=== PATIENT | female | born 1995 | race Caucasian/White ===

== ENCOUNTER 2017-05-18 15:17 | Emergency (ER) | payer BC ==
[2017-05-18 15:47] VITALS: BP 108/65
--- NOTE | 2017-05-18 16:32 | UC ---
Headache HPI - HPI Summary HPI Summary: 22 female presents to with complaints of sudden onset headache, right sided facial numbness, right sided arm pins and needles and blurred vision that began around 1:30pm while in class. States she went back to her dorm and symptoms subsided other than the headache after 15 minutes. Patient denies ever having any symptoms similar to this in the past. She does admit to having history of migraines, is not medicated for. Has been seen by neurology years ago. Took an excedrin around 2:00pm without much relief. Denies nausea, vomiting, recent illness, drooping of face, trouble speaking, weakness, recent trauma or injury. No other complaints at this time. Only symptom she has currently is headache. which she describes as intermittent sharp pain, left occipital region. Is photophobic with some dizziness. Denies nausea/vomiting, weakness, chest pain, difficulty breathing. Is taking OCP and has been for the past 2 years. Denies any recent long distance travel, use of cigarettes and prolonged bed rest. Is otherwise active and healthy. No other known PMHx or medications. - History Of Current Complaint Chief Complaint: [facility] Stated Complaint: HEADACHE/BLURRY VISION/DIZZY Time Seen by Provider: 05/18/17 15:51 Hx Obtained From: Patient Hx Last Menstrual Period: 05/08/17 Onset/Duration: Sudden Onset, Lasting Minutes, Still Present - headache Onset Of Symptoms: Sudden, Resolved - besides headache which is still present Initially Headache Was: Initial Pain Scale(0-10)= - 9 Currently Pain Is: Current Pain Scale(0-10)= - 7 Pain Intensity: 7 Pain Scale Used: 0-10 Numeric Timing: Minutes Character: Sharp - intermittent Location of Headache: Occipital - left side Aggravating Factor: Bright Lights Allevating Factors: Nothing - spontaneous resolution of neuro symptoms Associated Signs And Symptoms: Positive: Dizziness, Visual Changes - blurred, photophobia. Negative: Nausea, Vomiting, Fever, Neck Pain, Neck Stiffness, Decreased LOC - Risk Factors SAH Risk Factors: Negative Meningitis Risk Factors: Negative SDH Risk Factors: Negative Temporal Arteritis Risk Factors: Female, - Allergies/Home Medications Allergies/Adverse Reactions: Allergies Allergy/AdvReac Type Severity Reaction Status Date / Time No Known Allergies Allergy Verified 05/18/17 15:47 Home Medications: Home Medications [id number] [Excedrin Extra Strength] 1 tab PO DAILY [History Confirmed 05/18/17] Norethindrone Acet & Eth Estra [June09/17] 1 tab PO DAILY 05/18/17 [History Confirmed 05/18/17] PMH/Surg Hx/FS Hx/Imm Hx - Additional Past Medical History Additional PMH: Denies DM, HTN and asthma. Hx of migraines and is currently taking OCP - Surgical History Surgical History: None - Family History Known Family History: Positive: None - Social History Alcohol Use: None Substance Use Type: None Smoking Status (MU): Never Smoked Tobacco Review of Systems Constitutional: Negative Skin: Negative Eyes: Blurred Vision ENT: Negative Respiratory: Negative Cardiovascular: Negative Gastrointestinal: Negative Motor: Negative Neurovascular: Decreased Sensation - paresthesia right arm, face - resolved Musculoskeletal: Arthralgia Neurological: Headache, Paresthesia - right arm/face- resolved All Other Systems Reviewed And Are Negative: Yes Physical Exam Triage Information Reviewed: Yes Appearance: Well-Appearing, No Pain Distress, Well-Nourished Vital Signs: Initial Vital Signs Temp 97.5 F 05/18/17 15:41 Pulse 73 05/18/17 15:41 Resp 17 05/18/17 15:41 BP 108/65 05/18/17 15:41 Pulse Ox 100 05/18/17 15:41 Vital Signs Reviewed: Yes Eyes: Positive: Conjunctiva Clear ENT: Positive: Normal ENT inspection, Hearing grossly normal, Pharynx normal, TMs normal Neck: Positive: Supple, Nontender, No Lymphadenopathy Respiratory: Positive: Chest non-tender, Lungs clear, Normal breath sounds, No respiratory distress, No accessory muscle use. Negative: Respiratory distress, Decreased breath sounds, Stridor, Expiration Cardiovascular: Positive: RRR, No Murmur, Pulses Normal, Brisk Capillary Refill Abdomen Description: Positive: Nontender, Soft Bowel Sounds: Positive: Present Musculoskeletal: Positive: Strength Intact, ROM Intact, No Edema Neurological: Positive: Alert, Muscle Tone Normal Psychological: Positive: Normal Response To Family, Age Appropriate Behavior Skin Exam: Normal UC Physical Exam Vital Signs On Initial Exam: Initial Vitals Temp Pulse Resp BP Pulse Ox 97.5 F 73 17 108/65 100 05/18/17 15:41 05/18/17 15:41 05/18/17 15:41 05/18/17 15:41 05/18/17 15:41 - Neurological Exam Neurological: Normal, Sensory/Motor Intact, Alert, Oriented to Person Place, Time, CN Intact II-III, Reflexes Intact, NV Bundle Intact Distally, Normal Gait , Finger to Nose - normal, Facial Symmetry, Speech Normal Headache Course/Dx - Course Course Of Treatment: appears patient is suffering from potential complex migraine however with complaints of symptoms, use of OCP and sudden onset recommended to have CT scan and further work up done at hospital. Concern for CVA and needed to be ruled out although neurologic deficits resolved. Patient agreed. Spoke with mother on phone who also agreed. Patient refused ambulance transfer and wanted to go [facility]MA by private car to [facility]. Spoke with [place] nurse at [facility] at 4:30pm who accepted. Patient is aware of risks. - Differential Dx/Diagnosis Differential Diagnosis/HQI/PQRI: Migraine, Temporal Arteritis, Tension Headache , Other - CVA Provider Diagnoses: headache, right sided arm numbness, right sided facial numbness Discharge - Discharge Plan Condition: Stable Disposition: AGAINST MEDICAL ADVICE
== END 2017-05-18 16:31 | disposition left against medical advice (07) ==
LOC: UCCORT 15:17
DX: R51 Headache (principal); R20.0 Anesthesia of skin; H53.8 Other visual disturbances; H53.149 Visual discomfort, unspecified
CPT/HCPCS: 99202; G0463

== ENCOUNTER 2017-11-21 10:55 | Emergency (ER) | payer BC ==
[2017-11-21 11:07] VITALS: BP 123/79
--- NOTE | 2017-11-21 11:41 | UC ---
Headache HPI - HPI Summary HPI Summary: 22 yo female with the onset of left hemicranial YA around 9:15 AM while seated in class Associated with right facial and right arm numbness YA 7/10 slight nausea and slight photophobia states she was seen here 05/15 with similar symptoms and went to [place] where she has a MRI which she reports as normal has hx of migraines since age 17 does not think she has every seen a neurologist she took 2 excedrin prior to arrival - History Of Current Complaint Chief Complaint: UCHeadache Stated Complaint: RIGHT ARM/FACIAL NUMBNESS Time Seen by Provider: 11/21/17 11:01 Hx Obtained From: Patient Hx Last Menstrual Period: 11/20/17 Onset/Duration: Sudden Onset, Lasting Hours Onset Of Symptoms: Sudden Initially Headache Was: Initial Pain Scale(0-10)= - 7 Currently Pain Is: Current Pain Scale(0-10)= - 7 Pain Intensity: 7 Pain Scale Used: 0-10 Numeric Character: Throbbing Location of Headache: Other: - left hemicranial Allevating Factor(s): Nothing Associated Signs And Symptoms: Positive: Nausea, Visual Changes Related History: Similar Episode/DX As: - migraine - Allergies/Home Medications Allergies/Adverse Reactions: Allergies Allergy/AdvReac Type Severity Reaction Status Date / Time No Known Allergies Allergy Verified 05/18/17 15:47 PMH/Surg Hx/FS Hx/Imm Hx Previously Healthy: Yes Neurological History: Migraine - Surgical History Surgical History: None - Family History Known Family History: Positive: Other - migraine - Social History Alcohol Use: None Substance Use Type: None Smoking Status (MU): Never Smoked Tobacco Review of Systems Constitutional: Negative Skin: Negative Eyes: Negative ENT: Negative Respiratory: Negative Cardiovascular: Negative Gastrointestinal: Negative Genitourinary: Negative Motor: Negative Neurovascular: Negative Musculoskeletal: Negative Neurological: Headache Psychological: Negative Is Patient Immunocompromised?: No All Other Systems Reviewed And Are Negative: Yes Physical Exam Triage Information Reviewed: Yes Appearance: Well-Appearing, No Pain Distress, Well-Nourished Vital Signs: Initial Vital Signs Temp 97.6 F 11/21/17 11:02 Pulse 86 11/21/17 11:02 Resp 16 11/21/17 11:02 BP 123/79 11/21/17 11:02 Pulse Ox 100 11/21/17 11:02 Vital Signs Reviewed: Yes Eyes: Positive: Conjunctiva Clear, Other: - EOMI/PERRL ENT: Positive: Normal ENT inspection, Hearing grossly normal, Uvula midline. Negative: Nasal congestion, Nasal drainage, Tonsillar swelling, Tonsillar exudate Neck exam: Normal Neck: Positive: Supple, Nontender Respiratory: Positive: Lungs clear, Normal breath sounds, No respiratory distress Cardiovascular: Positive: RRR, No Murmur Musculoskeletal Exam: Normal Neurological: Positive: Alert, Muscle Tone Normal, Other: - GCS 15/15, cn2-12 intact, strenght 5/5, DTRs normal and symmetrical, no pronator drift normal gait , sensation intact Psychological Exam: Normal Skin Exam: Normal Re-Evaluation - Re-Evaluation First Eval Re-Evaluation Time: 11:59 Change: Improved Comment: no longer has right sided numbness Headache Course/Dx - Course Course Of Treatment: discussed with patient's mother. she declines CT here. wishes patient to go to hospital where she can see a neurologist. [facility] transfer center called. PT refuses EMS transfer...her friend is driving - Differential Dx/Diagnosis Provider Diagnoses: complicated migraine Discharge - Sign-Out/Discharge Documenting (check all that apply): Discharge - Discharge Plan Condition: Stable Disposition: TRANS HIGHER LVL OF CARE FAC Referrals: Non Staff,Doctor [Primary Care Provider] - Additional Instructions: they are expecting you at [facility] ER - Billing Disposition and Condition Condition: STABLE Disposition: EMTALA
== END 2017-11-21 12:14 | disposition short-term general hospital (02) ==
LOC: UCCORT 10:55
DX: G43.109 Migraine with aura, not intractable, without status migrainosus (principal)
CPT/HCPCS: 99212; G0463